=== PATIENT | female | born 1965 | race Caucasian/White ===

== ENCOUNTER 2020-05-22 08:19 | Outpatient (REF) | payer OTHER, SELFPAY ==
[2020-05-22 09:51] LABS: Eos%MD 1.4 %; Eosinophils Absolute Auto 0.1 X10*3/uL (0.0-0.4); WBCANC 4.4 X10*3/uL
[2020-05-22 09:56] LABS: Estimated Average Glucose 117 mg/dL; Hemoglobin A1c % 5.7 %
[2020-05-22 10:16] LABS: Cholesterol 250 mg/dL; Glucose Fasting 101 mg/dL (60-99); HDL Cholesterol 79 mg/dL; LDL Cholesterol Calculated 160 mg/dl; Triglycerides 57 mg/dL
[2020-05-24 18:27] LABS: Immunoglobulin E 1000 kU/L (<OR=114)
== END 2020-05-22 08:20 | disposition home or self-care (01) ==
LOC: HO.LAB 08:19
PROVIDERS: PCP Family Medicine; Visit Provider Family Medicine
DX: J45.909 Unspecified asthma, uncomplicated (principal); Z82.49 Family history of ischemic heart disease and other diseases of the circulatory system
CPT/HCPCS: 36415; 80061; 82785; 82947; 83036

== ENCOUNTER 2020-08-07 09:45 | Outpatient (REF) | payer OTHER, SELFPAY ==
--- NOTE | 2020-08-07 09:49 | MM_ITS ---
EXAMINATION: MM SCREENING DIGITAL BREAST TOMOSYNTHESIS, BILATERAL CLINICAL INFORMATION: Screening. Asymptomatic. The lifetime risk of breast cancer based on the Tyrer-Cuzick Model is 7%. COMPARISON: Mammography: 08/02/2019, 07/27/2018, 01/23/2015 TECHNIQUE: Digital breast tomosynthesis is performed in both the craniocaudal and mediolateral oblique views along with computer-aided detection (CAD). Synthesized 2D images are generated from the tomosynthesis. FINDINGS: The breasts are heterogeneously dense, which may obscure small masses (ACR BI-RADS breast composition Category c). Breast tissue composition borders on average fibroglandular. Parenchymal pattern is similar to prior exams and there is no interval mass or architectural abnormality or developing density. No abnormal calcifications. The axilla and skin contours are unremarkable. MM/MM tomosynthesis screening BI IMPRESSION: No significant changes from prior exam. ASSESSMENT: BI-RADS 1: Negative RECOMMENDATION: Routine annual mammography screening. This patient's information was entered into a reminder system with a target due date for their next mammogram.
== END 2020-08-07 09:46 | disposition home or self-care (01) ==
LOC: HO.MAMMO 09:45
PROVIDERS: PCP Family Medicine; Visit Provider Family Medicine
DX: Z12.31 Encounter for screening mammogram for malignant neoplasm of breast (principal)
CPT/HCPCS: 77063; 77067

== ENCOUNTER 2021-08-31 12:35 | Outpatient (REF) | payer OTHER, SELFPAY ==
[2021-08-31 14:07] LABS: MANUAL DIFF FLAG NO
[2021-08-31 14:12] LABS: Basophils Percent Auto 0.1 % (0-2); Eosinophils Absolute Auto 0.1 X10*3/uL (0.0-0.4); Eosinophils Percent Auto 1.2 % (0-4); Hematocrit 40.8 % (37.0-47.0); Hemoglobin 12.9 g/dl (12.0-16.0); Imm Gran Abs Auto 0.01 X10*3/uL (0.00-0.03); Imm Gran Pct Auto 0.1 % (0.0-0.4); Lymphocytes Absolute Auto 1.1 X10*3/uL (1.2-4.9); Lymphocytes Percent Auto 15.4 % (20-40); Mean Corpuscular HGB Conc 31.6 g/dl (31.0-35.0); Mean Corpuscular Hemoglobin 27.1 pg (27.0-33.0); Mean Corpuscular Volume 85.7 fL (80.0-98.0); Mean Platelet Volume 11.6 fL (9.4-12.3); Monocytes Absolute Auto 0.5 X10*3/uL (0.1-1.2); Monocytes Percent Auto 6.1 % (2-11); Neutrophils Absolute Auto 5.7 x10*3/uL (2.0-8.3); Neutrophils Percent Auto 77.1 % (45-73); Platelet Count 208 X10*3/uL (160-400); Red Blood Count 4.76 X10*6/uL (4.20-5.50); Red Cell Distribution Width 13.3 % (11.0-16.0); White Blood Count 7.4 X10*3/uL (4.8-10.8)
[2021-08-31 16:05] LABS: Blood Urea Nitrogen 12 mg/dL (9-16); C Reactive Protein 1.82 mg/dL (< or = 0.50); Estimated Glomerular Filt Rate > 60
== END 2021-08-31 12:36 | disposition home or self-care (01) ==
LOC: HO.10HDL 12:35
PROVIDERS: Visit Provider Family Medicine
DX: L03.90 Cellulitis, unspecified (principal); I10 Essential (primary) hypertension
CPT/HCPCS: 36415; 82565; 84520; 85025; 86140

== ENCOUNTER 2021-09-26 15:53 | Outpatient (REF) | payer OTHER, SELFPAY ==
--- NOTE | ~2021-09-26 | MM_ITS ---
EXAMINATION: MM SCREENING DIGITAL BREAST TOMOSYNTHESIS, BILATERAL CLINICAL INFORMATION: Screening. Asymptomatic. The lifetime risk of breast cancer based on the Tyrer-Cuzick Model is 6%. COMPARISON: Mammography: 08/07/2020, 08/02/2019, 07/27/2018 TECHNIQUE: Digital breast tomosynthesis is performed in both the craniocaudal and mediolateral oblique views along with computer-aided detection (CAD). Synthesized 2D images are generated from the tomosynthesis. FINDINGS: The breasts are heterogeneously dense, which may obscure small masses (ACR BI-RADS breast composition Category c). There are no significant masses, abnormal calcifications, or other abnormalities. Parenchymal pattern is similar to prior studies. There are no significant changes. MM/MM tomosynthesis screening BI IMPRESSION: No mammographic evidence of malignancy. ASSESSMENT: BI-RADS 1: Negative RECOMMENDATION: Routine annual mammography screening. This patient's information was entered into a reminder system with a target due date for their next mammogram.
== END 2021-09-26 15:54 | disposition home or self-care (01) ==
LOC: HO.MAMMO 15:53
PROVIDERS: PCP Family Medicine; Visit Provider Family Medicine
DX: Z12.31 Encounter for screening mammogram for malignant neoplasm of breast (principal)
CPT/HCPCS: 77063; 77067

== ENCOUNTER 2022-02-06 16:17 | Outpatient (REF) | payer OTHER, SELFPAY ==
[2022-02-06 18:26] LABS: Appearance Urine CLEAR; Color Urine YELLOW; Glucose Urine UA NEG (NEG); Leukocyte Esterase Urine NEG (NEG); Nitrite Urine NEG (NEG); PH 5.5 (5.0-8.0); UACC Culture Trigger NO; Urine Blood TRACE (NEG); Urine Ketones NEG (NEG); Urine Protein NEG (NEG-TRACE)
[2022-02-06 18:39] LABS: Bacteria Urine 1+ /LPF; Squamous Epithelial Cell Urine TRACE /LPF
== END 2022-02-06 16:18 | disposition home or self-care (01) ==
LOC: HO.LAB 16:17
PROVIDERS: PCP Family Medicine; Visit Provider Family Medicine
DX: R32 Unspecified urinary incontinence (principal)
CPT/HCPCS: 81001; 87086

== ENCOUNTER 2023-03-30 12:34 | Outpatient (REF) | payer OTHER, SELFPAY ==
--- NOTE | ~2023-03-30 | XR_ITS ---
EXAMINATION: XR FOOT, RIGHT XR FOOT, LEFT CLINICAL INFORMATION: Bilateral heel pain. COMPARISON: None available. TECHNIQUE: AP, lateral, and oblique views of each of the feet. FINDINGS: Right: Small Achilles calcaneal spur. Punctate calcification projecting over the Achilles tendon. The bones and soft tissues appear unremarkable. No fracture appreciated. Alignment is anatomic. Joint spaces appear maintained. Left: Small Achilles calcaneal spur. The bones and soft tissues appear unremarkable. No fracture appreciated. Alignment is anatomic. Joint spaces appear maintained. XR/XR foot LT min 3V IMPRESSION: Small bilateral Achilles calcaneal spurs. Punctate calcification projecting over the right Achilles tendon, raising the possibility of minimal calcific tendinitis.
--- NOTE | ~2023-03-30 | XR_ITS ---
EXAMINATION: XR FOOT, RIGHT XR FOOT, LEFT CLINICAL INFORMATION: Bilateral heel pain. COMPARISON: None available. TECHNIQUE: AP, lateral, and oblique views of each of the feet. FINDINGS: Right: Small Achilles calcaneal spur. Punctate calcification projecting over the Achilles tendon. The bones and soft tissues appear unremarkable. No fracture appreciated. Alignment is anatomic. Joint spaces appear maintained. Left: Small Achilles calcaneal spur. The bones and soft tissues appear unremarkable. No fracture appreciated. Alignment is anatomic. Joint spaces appear maintained. XR/XR foot RT min 3V IMPRESSION: Small bilateral Achilles calcaneal spurs. Punctate calcification projecting over the right Achilles tendon, raising the possibility of minimal calcific tendinitis.
== END 2023-03-30 12:35 | disposition home or self-care (01) ==
LOC: HO.XRAY 12:34
PROVIDERS: PCP Family Medicine; Visit Provider Family Medicine
DX: M79.671 Pain in right foot (principal); M79.672 Pain in left foot
CPT/HCPCS: 73630

== ENCOUNTER 2023-09-03 16:01 | Outpatient (REF) | payer OTHER, SELFPAY ==
--- NOTE | ~2023-09-03 | XR_ITS ---
EXAMINATION: XR KNEE, LEFT CLINICAL INFORMATION: Pain. COMPARISON: None available. TECHNIQUE: AP, lateral, tunnel, and sunrise views of the left knee. FINDINGS: No fracture or joint effusion. Alignment is anatomic. Joint spaces are maintained. No abnormal soft tissue calcification. XR/XR knee LT 4V IMPRESSION: Normal left knee.
== END 2023-09-03 16:02 | disposition home or self-care (01) ==
LOC: HO.XRAY 16:01
PROVIDERS: PCP Family Medicine; Visit Provider Family Medicine
DX: M25.562 Pain in left knee (principal)
CPT/HCPCS: 73564

== ENCOUNTER 2023-09-10 12:20 | Outpatient (AMB) | payer OTHER, SELFPAY ==
--- NOTE | 2023-09-10 12:23 | A.OFFVIS_ITS ---
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 She was referred by her pcp for concerned of pain and swelling with difficulty walking. Patient reports that she has had pain for about 2 weeks now, he pain started while at work. Her pain is aggravted with any and all acitivity. 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 She was referred here by her PCP to discuss possible knee aspiration. She reports ~2 weeks of left knee pain & swelling. She has pain with daily activity, which she says any motion increases, along with difficulty walking. [facility] Surgical History (Updated 09/10/23 @ 12:27 by Bernadette Cruz CMA) Hx of appendectomy Social History (Updated 09/10/23 @ 12:27 by Bernadette Cruz CMA) Current occupational status: employed Current occupation: [employer] Review of Systems Const All systems reviewed & are unremarkable except as noted in HPI and below Physical Exam Vital Signs: BMI result Body Mass Index 33.5 Const General: no acute distress, alert and awake Orientation/consciousness: patient oriented x3 HEENT Head: Yes normocephalic and Yes atraumatic Eyes EOM: EOMs intact bilaterally Resp Effort & Inspection: normal respiratory effort and able to speak in complete sentences Cardio Jugular venous distension: no JVD Skin General skin exam: turgor normal Rashes: no rashes Neuro General: patient oriented x3 Extrem Other: mild effusion no warmth or erythema ttp medial joint line + gait antalgia Psych Appearance: grossly normal Affect: normal affect Attitude: cooperative Office Procedures Joint Injection/Drain Joint Injection/Drain Details: Injected 1 mL of Decadron and 3 mL 1% lidocaine and 3 mL of 0.25% Marcaine. Site was prepped using aseptic technique. Patient tolerated the procedure well. Primary Site: left knee Approach Used: anterolateral Coding - Large joint Procedure code (CPT) selection complete Results Reviewed Results Reviewed: I personally reviewed relevant radiographs. nl knee radiographs Assessment & Plan Assessment & Plan (1) Osteoarthritis of left knee: Code(s): M17.12 - Unilateral primary osteoarthritis, left knee Plan: Spontaneous effusion left knee I injected her knee. PT and NSAIDs Plan Prepared for Fabio Gracia MD by Kalin Sood, electromedical equipment repairer, on 09/10/23 at 12:31 PM, EST. Orders: Orders PT Evaluation and Treatment 09/10/23 M17.12 - Unilateral primary osteoarthritis, left knee Medications: New naproxen (EC-Naprosyn) 500 mg PO BID 30 days PRN 60 tabs 1RF pain Coding Level of Care Code New Pt Level 3 (10756) Diagnoses Osteoarthritis of left knee M17.12 CPT Codes Coding - Large joint: 37715 - Large joint ([id number])
[2023-09-10 12:27] VITALS: BMI 33.5
== END 2023-09-10 13:37 | disposition home or self-care (01) ==
PROVIDERS: PCP Family Medicine; Visit Provider Orthopaedic Surgery
DX: M17.12 Unilateral primary osteoarthritis, left knee (principal)
CPT/HCPCS: 20610; 99203

== ENCOUNTER → 2023-09-10 12:20 | Outpatient (BNVA) | payer OTHER, SELFPAY | PROVIDERS: PCP Family Medicine; Visit Provider Orthopaedic Surgery | DX: M17.12 Unilateral primary osteoarthritis, left knee (principal) | CPT/HCPCS: 20610; J0665; J1100 ==

== ENCOUNTER 2023-10-01 14:30 | Outpatient (AMB) | payer OTHER, SELFPAY ==
--- NOTE | 2023-10-01 14:32 | MHC.OFFVIS ---
Intake Intake Visit Reasons: OV-Left knee pain/swelling follow up Intake Note: Gill is a 57 year old female who presents today for a follow up of her left knee. She was last seen on 09/10/23 where the knee was injected, Physical Therapy was ordered and Naproxen was prescribed. Patient reports that this injection was not very helpful, It allowed her to increase ROM but she is still having pain. She has started PT which went well. She stopped taking the Naproxen as it was causing GI upset Allergies banana [BANANA] Allergy (Unknown, Unverified 04/15/20 16:08) UNKNOWN pineapple [PINEAPPLE] Allergy (Unknown, Unverified 04/15/20 16:08) UNKNOWN shellfish derived [SHELLFISH DERIVED] Allergy (Unknown, Unverified 04/15/20 16:08) UNKNOWN morphine Allergy (Verified 09/10/23 12:26) Vomiting shrimp Allergy (Unknown, Uncoded 01/27/14 00:00) oral swlling HPI OV-Left knee pain/swelling follow up HPI Details Gill is a 57 year old woman who returns for a follow-up of her left knee OA & effusion. She was last seen, and injected, on 09/10/23, with mild relief. PT & NSAIDs were ordered as well. She says she is still having pain. She has started PT, which has helped improve her ROM, but has not helped her pain. She was experiencing GI upset with Naproxen so she stopped taking it. PFSH Surgical History (Updated 09/10/23 @ 12:27 by Bernadette Cruz CMA) Hx of appendectomy Social History (Updated 09/10/23 @ 12:27 by Bernadette Cruz CMA) Current occupational status: employed Current occupation: [employer] Review of Systems Const All systems reviewed & are unremarkable except as noted in HPI and below Physical Exam Const General: no acute distress, alert and awake Orientation/consciousness: patient oriented x3 HEENT Head: Yes normocephalic and Yes atraumatic Mouth: moist mucous membranes Eyes General: appearance normal, both eyes and all related structures EOM: EOMs intact bilaterally Chest Other: no audible wheezing. Resp Other: No audible wheezing Effort & Inspection: normal respiratory effort and able to speak in complete sentences Cardio Other: Radial pulse palpable with no rythmic abnormalities Jugular venous distension: no JVD Back/Spine/Pelvis Cervical Spine: normal cervical lordosis Skin General skin exam: turgor normal Rashes: no rashes Neuro General: patient oriented x3 Extrem Other: TTP pes anserine bursa Minimal ttp medal and lateral ocmaprtemnt of knee No effusion Psych Appearance: grossly normal Mental Status: mental status grossly normal Speech and movement: Normal speech and movement present Affect: normal affect Attitude: cooperative Assessment & Plan Assessment & Plan (1) Pes anserinus tendonitis: Code(s): M76.899 - Other specified enthesopathies of unspecified lower limb, excluding foot Plan: Pes anserine bursitis. Her pain is different than prior and I suspect the prior injection may actually have been helpful. I discussed options. At this time she will work of stretching and exercise and see me if she does not improve or gets worse. No other intervention at this time Plan Prepared for Fabio Gracia MD by Kalin Sood, medical superintendent, on 10/01/23 at 2:35 PM, EST. Coding Level of Care Code Est Pt Level 3 (81085) Diagnoses Pes anserinus tendonitis M76.899
== END 2023-10-01 15:01 | disposition home or self-care (01) ==
PROVIDERS: PCP Family Medicine; Visit Provider Orthopaedic Surgery
DX: M76.892 Other specified enthesopathies of left lower limb, excluding foot (principal)
CPT/HCPCS: 99213

== ENCOUNTER → 2023-10-01 14:30 | Outpatient (BNVA) | payer OTHER, SELFPAY | PROVIDERS: PCP Family Medicine; Visit Provider Orthopaedic Surgery ==

== ENCOUNTER 2023-10-11 16:00 | Outpatient (RCR) | payer OTHER, SELFPAY ==
--- NOTE | 2023-09-26 16:43 | MHC.PT.EP ---
[facility] [place] Office [place] Office [place] Office [address] [phone] F: [phone] F: [phone] F: [phone] F: [phone] Physical Therapy Plan of Care Date of Evaluation: 09/25/23 Date of Surgery: Diagnosis: LEFT knee OA Assessment: Patient is a pleasant 57 y.o. female who is referred to PT by Dr. Fabio Gracia MD, with Dx of LEFT knee osteoarthritis.Patient impairments include pain, limited ROM, weakness, antalgic gait. Patient current functional limitations are proloned sitting, standing, walking, bend/squat, lift/carry at work, stair use, getting in/out of car. Patient will benefit from skilled PT to address aforementioned impairments and functional limitations to meet established goals. Frequency and Duration: The patient will be seen 2x/week for 4 weeks Short Term Goals: 2 weeks Patient demonstrates consistency and independence with HEP to self manage symptoms. Patient presents with increased LEFT knee extension 0 degrees to normalize gait pattern. Skilled Nursing Goals: 4 weeks Patient presents with increased LEFT knee flexion 120 degrees to be able to perform squat to low surface. Patient presents with increased LEFT knee extension 5/5 to be able to ascend/descend stairs. Treatment Plan: Modalities to reduce pain, spasms and effusion. Manual therapy to restore motion and function. Therapeutic exercise to improve strength and flexibility. Neuromuscular re-education for posture and balance. Therapeutic activities to return to functional activities of daily living. Electronically signed by: Dann Tucker, PT, DPT Please sign and return to therapist. Thank you for your referral.
--- NOTE | 2023-12-26 09:20 | MHC.PT.DC ---
[facility] [place] Office [place] Office [place] Office [address] Poonam Finney [address] [phone] F: [phone] F: [phone] F: [phone] F: [phone] Physical Therapy Discharge Report Diagnosis: LEFT knee OA Date of Surgery: Date of Evaluation: 09/25/23 Date of Discharge: 12/26/23 Treatments to Date: 2 Cancellations to Date: 0 No Shows to Date: 0 Discharge Status: Independent with HEP Patient Elected to Stop Discharge Summary: Lucy was only seen for one FUP visit after evaluation and then ceased attending on her own accord. Her last PT assessment on 10/11/23 reads, Gill's AROM in her LEFT knee is significantly improved since initial visit, from 70 degrees of flexion to measuring 112 degrees today and extension to 0 degrees. She is still presenting with weakness in quads and glutes so I added exercises to focus on both this session with good tolerance and reports improvement in her symptoms end of session. Electronically signed by: Dann Tucker, PT, DPT Please sign and return to therapist. Thank you for your referral.
== END 2023-12-26 09:20 | disposition home or self-care (01) ==
LOC: HO.PT 16:00
PROVIDERS: PCP Family Medicine; Visit Provider Orthopaedic Surgery
DX: M17.12 Unilateral primary osteoarthritis, left knee (principal)
CPT/HCPCS: 97110; 97161

== ENCOUNTER 2024-01-05 08:22 | Outpatient (REF) | payer OTHER, SELFPAY ==
[2024-01-05 09:31] LABS: Anion Gap 14 (12-20); Blood Urea Nitrogen 12 mg/dL (9-16); Carbon Dioxide 25 mmol/L (22-29); Chloride 106 mmol/L (96-108); Cholesterol 279 mg/dL (<200); Estimated Glomerular Filt Rate > 60; Glucose Fasting 105 mg/dL (60-99); HDL Cholesterol 72 mg/dL (>40); LDL Cholesterol Calculated 195 mg/dL (<100); Potassium 4.3 mmol/L (3.3-5.1); Sodium 141 mmol/L (135-145); Triglycerides 64 mg/dL (<150)
== END 2024-01-05 08:23 | disposition home or self-care (01) ==
LOC: HO.XRAY 08:22
PROVIDERS: PCP Family Medicine; Visit Provider Family Medicine
DX: I10 Essential (primary) hypertension (principal); E78.00 Pure hypercholesterolemia, unspecified; R73.9 Hyperglycemia, unspecified; M79.605 Pain in left leg
CPT/HCPCS: 36415; 80051; 80061; 82565; 82947; 84520

== ENCOUNTER 2024-01-07 14:57 | Outpatient (REF) | payer OTHER, SELFPAY ==
--- NOTE | ~2024-01-07 | XR_ITS ---
EXAMINATION: XR TIBIA AND FIBULA, LEFT CLINICAL INFORMATION: Leg pain COMPARISON: None available. TECHNIQUE: AP and lateral views of the left tibia and fibula were obtained. FINDINGS: The bones and soft tissues are unremarkable. No fracture. No osseous lesions. XR/XR tibia fibula LT 2V IMPRESSION: Normal left tibia and fibula.
== END 2024-01-07 14:58 | disposition home or self-care (01) ==
LOC: HO.LAB 14:57
PROVIDERS: PCP Family Medicine; Visit Provider Family Medicine
DX: M79.605 Pain in left leg (principal)
CPT/HCPCS: 73590

== ENCOUNTER 2024-10-04 08:15 | Outpatient (REF) | payer OTHER, SELFPAY ==
[2024-10-04 10:21] LABS: Alanine Aminotransferase 25 U/L (0-31); Anion Gap 12 (12-20); Aspartate Amino Transferase 21 U/L (5-31); Blood Urea Nitrogen 16 mg/dL (9-16); Carbon Dioxide 24 mmol/L (22-29); Chloride 109 mmol/L (96-108); Estimated Glomerular Filt Rate > 60; Potassium 4.5 mmol/L (3.3-5.1); Sodium 140 mmol/L (135-145)
== END 2024-10-04 08:16 | disposition home or self-care (01) ==
LOC: HO.LAB 08:15
PROVIDERS: PCP Family Medicine; Visit Provider Family Medicine
DX: I10 Essential (primary) hypertension (principal); E11.9 Type 2 diabetes mellitus without complications
CPT/HCPCS: 36415; 80051; 82550; 82565; 84450; 84460; 84520

== ENCOUNTER 2024-10-21 09:52 | Outpatient (REF) | payer OTHER, SELFPAY ==
--- NOTE | 2024-10-21 09:55 | EMG_ITS ---
Bilateral tibial and peroneal motor studies were performed. Bilateral superficial peroneal and sural sensory studies were performed. Tibial H reflexes were obtained and needle examination was performed. IMPRESSION: 1. Bilateral superficial peroneal sensory neuropathy. Otherwise, there was no evidence of any the significant peripheral neuropathy. 2. Left tibial motor amplitudes were low that sometime can suggest radiculopathy, but there was no EMG evidence of acute radiculopathy at this time. MD KATELYNN Ruiz/MODL / [id number]
--- OUTSIDE RECORDS SUMMARY | 2024-10-21 11:21 | XMS_ITS | Patient Health Record ---
Author Organization [facility] Address [address] [place] [address] Care Team Providers Care Wallpaper Hanger Name Role Phone Rusty SHOOK, Ivan Primary Care Provider UnavailMarie Grande Unavailable [phone] Allergies Allergen (clinical drug ingredient) Drug/Non Drug Allergy documented on EMR Reaction Allergy Type Onset Date Status morphine Morphine Sulfate increased heart rate Drug Allergy Active Shrimp/Shell Fish hives Drug Allergy Active Reason For Referral No Information Medications Medication SIG (Take, Route, Frequency, Duration) Notes Start Date End Date Status dilTIAZem HCl ER Beads 120 MG 1 capsule Orally Once a day Not-Taking Nightsplint . . . AFO - L1930 for . Not-Taking Cephalexin Not-Takin g Polymyxin B-Trimethoprim Not-Taking Feldene 20 MG 1 capsule with food Orally Once a day for 30 day(s) 06/05/2023 Active Social History Tobacco Use: Social History Observation Description Date Details (start date - stop date) Never Smoker NA - NA Tobacco Use/Smoking Question Answer Notes Are you a: nonsmoker Additional Findings: Tobacco Non-User Current no n-smoker Alcohol Screen Question Answer Notes Did you have a drink containing alcohol in the p ast year? Yes Points 0 Interpretation Negative Tobacco use other than smoking: Question Answer Notes Are you an other tobacco user? No Encounters Encounter Location Date Provider Diagnosis [facility] [address] [place] [address] 05/14/2024 Marie Cheema Plan Of Treatment No Information Insurance Providers Payer Name Payer Address Payer Phone Subscriber Number Group Number Insured Name Patient Relationship to Insured Coverage Start Date Coverage End Date Cigna [address] Radha blake, [place] [phone] [id number] Gill Batres Self - patient is the insured Medical (General) History Medical History History ICD Code High blood pressure Chicken pox Surgical History Surgery Date(Month/Year) appendectomy 11/2014 cataract surgery breast surgery Hospitalization History Reason Date(Month/Year) childbirth
--- OUTSIDE RECORDS SUMMARY | 2024-10-21 11:21 | XMS_ITS ---
Author Organization [facility] Address [address] [place] [address] Care Team Providers Care Sales Enablement Specialist Name Role Phone Rusty SHOOK, Ivan Primary Care Provider UnavailMarie Grande [phone] Encounters Encounter Location Date Provider Diagnosis [facility] [address] [place] [address] 07/17/2023 Marie Cheema Plan Of Treatment No Information Progress Notes * Abhay GALLAGHERaDOB:1965 ( 58 yo F)Acc No.[id number]:07/17/2023 Progress Notes Patient:?Gill GALLAGHER Provider:?Marie Cheema DPM :1965???Age:57 Y???Sex:Female D ate:07/17/2023 Address:[address] [place], [place] [address] Pcp:Ivan Ojeda MD Subjective: * Chief Complaints: * ??? * Medical History:? Objective: * Vitals:? Assessment: Plan: * Treatment: * Images: * The named appointment provid er may or may not be the originator of this progress note, and it is not deemed complete until electronically signed by the appointment provider. Sign off status: Pending * Provider:?Marie Cheema DPM Date:? Generated for Guadalupei tenisha/Nirali/eTransmitting on:?10/21/2024 11:21 AM EDT
--- OUTSIDE RECORDS SUMMARY | 2024-10-21 11:21 | XMS_ITS ---
Author Organization [facility] Address [address] [place] [address] Care Team Providers Care Bag Bundler Name Role Phone Ivan Ojeda MD Primary Care Provider Unavailab Marie Arshad [phone] REASON FOR VISIT NS 05/14/24 Encounters Encounter Location Date Provider Diagnosis [facility] [address] [place] [address] 05/14/2024 Marie Cheema Plan Of Treatment No Information Progress Notes * Abhay GALLAGHERaDOB:1965 ( 58 yo F)Acc No.[id number]:05/14/2024 Patient:?Medardo Gill :1965???Age:58 Y???Sex:Female Address:[address] [place] [address], [address] * true * Date:? Generated for Printi ng/Faroyag/eTransmitting on:?10/21/2024 11:21 AM EDT
--- OUTSIDE RECORDS SUMMARY | 2024-10-21 11:21 | XMS_ITS ---
Author Organization [facility] Address [address] [place] [address] Care Team Providers Care Home Health Provider Name Role Phone Rusty SHOOK, Ivan Primary Care Provider UnavailMarie Grande Unavailable [phone] Medications Medication SIG (Take, Route, Frequency, Duration) Notes Start Date End Date Status dilTIAZem HCl ER Beads 120 MG 1 capsule Orally Once a day Not-Taking Nightsplint . . . AFO - L1930 for . Not-Taking Cephalexin Not-Takin g Polymyxin B-Trimethoprim Not-Taking Feldene 20 MG 1 capsule with food Orally Once a day for 30 day(s) 06/05/2023 Active Encounters Encounter Location Date Provider Diagnosis [facility] [address] [place] [address] 05/14/2024 Marie Cheema Plan Of Treatment No Information Progress Notes * Abhay GALLAGHERaDOB:1965 ( 58 yo F)Acc No.[id number]:05/14/2024 Progress Note Patient:?Day GALLAGHERyda Provider:?Marie Cheema DPM :1965???Age:58 Y???Sex:Female D ate:05/14/2024 Address:[address] [place] [phone] Pcp:Ivan Ojeda MD Subjective: * Chief Complaints: * ??? * Medical History:? * Medications:?Taking Feldene 20 MG Capsule 1 capsule with food Orally Once a day , Not-Taking/PRN dilTIAZem HCl ER Beads 120 MG Capsule Extended Release 24 Hour 1 capsule Orally Once a day , Not-Taking/PRN Nightsplint . . . . AFO - L1930 , Not-Taking/PRN Cephalexin , Not-Taking/PRN Polymyxin B-Trimethoprim Objective: * Vitals:? Assessment: Plan: * Treatment: * Images: * The named appointment provid er may or may not be the originator of this progress note, and it is not deemed complete until electronically signed by the appointment provider. Sign off status: Pending * Provider:?Marie Cheema DPM Date:? Generated for Wicho steven/Nirali/Rosario on:?10/21/2024 11:21 AM EDT
== END 2024-10-21 09:53 | disposition home or self-care (01) ==
LOC: HO.NEURO 09:52
PROVIDERS: PCP Family Medicine; Visit Provider Family Medicine
DX: M79.661 Pain in right lower leg (principal); M79.662 Pain in left lower leg
CPT/HCPCS: 95886; 95911

== ENCOUNTER 2025-04-24 15:04 | Outpatient (AMB) | payer OTHER, SELFPAY ==
--- OUTSIDE RECORDS SUMMARY | 2024-05-14 11:00 | XMS_ITS ---
Author Organization [facility] Address [address] [place] [address] Care Team Providers Care Income Tax Adjuster Name Role Phone Rusty SHOOK, Ivan Primary Care Provider Unavailab Marie Arshad Unavailable [phone] Medications Medication SIG (Take, Route, Frequency, Duration) Notes Start Date End Date Status dilTIAZem HCl ER Beads 120 MG 1 capsule Orally Once a day Not-Taking Nightsplint . . . AFO - L1930; Duration: . Not-Taking Cephalexin Not-Takin g Polymyxin B-Trimethoprim Not-Taking Feldene 20 MG 1 capsule with food Orally Once a day; Duration: 30 day(s) 06/05/2023 Active Encounters Encounter Location Date Provider Diagnosis [address] [address] 05/14/2024 Marie Cheema Plan Of Treatment No Information Progress Notes * Abhay GALLAGHERaDOB:1965 ( 59 yo F)Acc No.[id number]:05/14/2024 Progress Note Patient: Abhay LESLIEa Provider: Ana Cheema DPM :1965 A ge:58 Y S ex:Female Date:05/14/2024 Address:[address] [place] [id number] Pcp:Ivan Ojeda MD Subjective: * Chief Complaints: * * Medical History: * Medications: T aking Feldene 20 MG Capsule 1 capsule with food Orally Once a day , Not- Taking/PRN dilTIAZem HCl ER Beads 120 MG Capsule Extended Release 24 Hour 1 capsule Orally Once a day , Not-Taking/PRN Nightsplint . . . . AFO - L1930 , Not-Taking/PRN Cephalexin , Not-Taking/PRN Polymyxin B-Trimethoprim Objective: * Vitals: Assessment: Plan: * Treatment: * Images: * The named appointment provid er may or may not be the originator of this progress note, and it is not deemed complete until electronically signed by the appointment provider. Sign off status: Pending * Provider: Ana Cheema DPM Date: 1 Generated for Wicho steven/Nirali/Rosario on: 0 04/24/2025 03:42 PM EDT
--- NOTE | 2025-04-24 15:06 | MHC.PC.OV ---
Vital Signs 04/24/25 15:08 Height 5 ft 3 in Weight 89.811 kg BMI 35.1 BP 130/80 Blood Pressure Location Lt brachial Position Sitting Pulse 71 Pulse Source Pulse Oximeter Temp 97 F Temp Source Temporal Artery Scan Pulse Oximetry (%) 96 Oxygen Delivery Method Room Air Intake Visit Reasons: 4 month follow up-laura pt Database Analyst Required: No Accompanied by: Self / Same As Patient Allergies banana (BANANA) Allergy (Unknown, Verified 04/24/25 15:06) UNKNOWN pineapple (PINEAPPLE) Allergy (Unknown, Verified 04/24/25 15:06) UNKNOWN shellfish derived (SHELLFISH DERIVED) Allergy (Unknown, Verified 04/24/25 15:06) UNKNOWN morphine Allergy (Verified 04/24/25 15:06) Vomiting shrimp Allergy (Unknown, Uncoded 01/27/14 00:00) oral swlling Medication List - Last Reconciled 04/24/25 by JOSE Fox hydroxyzine pamoate 25 mg PO DAILY PRN Tobacco use date assessed: 04/24/25 Dental Screening Dental Screen Date: 04/24/25 Did you have a dental visit in the last 12 months?: Yes Did you have a dental problem in the last 6 months where you did not have access to dental care?: No HPI HPI Comments History of Present Illness Details 59-year-old female with history of vertigo, varicose veins, GERD, hyperlipidemia presenting to the office today for management of chronic conditions and to establish care. She is a former patient of Dr. Ojeda, last seen 3 months ago. Varicose veins-s/p endovascular ablation at [facility] vascular surgery. Reports the pain during the procedure was unbearable and she continues experiencing pain and swelling in the bilateral lower legs most prominent in the popliteal fossa. She was trying to wear compression stockings but despite getting measured, these were too tight and were causing too much compression resulting in her feeling very dizzy. She does work a job with prolonged standing. Headache/intermittent vertigo- hydroxyzine prn GERD- eating 10 minutes has to have a bowel movement. occ foods epigastric pain acidic foods bananas HDL- Last LDL 197. Previously on statin but got myalgias and depression (?) Obesity- BMI 35.1. Tries to follow a healthy diet but does acknowledge she is not always following a healthy weight. Weight fluctuations. She does exercise on a regular basis with biking, stairs Concerns: Nail dystrophy Health maintenance: Last mammogram 08/2021, ordered Last colonoscopy 07/2015, 10 year follow-up advised. Dr. Beckham ROS: See HPI EXAM: Constitutional - Awake and Alert, No apparent distress Eyes - PERRL Cardiovascular - S1S2, RRR, No edema Respiratory - Normal lung expansion, Normal respiratory effort, No respiratory distress, CTA bilaterally Extremities - no calf tenderness bilaterally, no swelling Skin - Warm/Dry . Dystrophic nail 3rd left finger Neurological - Alert & oriented x3 Psychological - Appropriate affect [facility] Medical History (Updated 04/24/25 @ 15:58 by JOSE Fox) GERD (gastroesophageal reflux disease) HLD (hyperlipidemia) Varicose veins of bilateral lower extremities with pain Surgical History Hx of appendectomy Family History (Updated 04/24/25 @ 15:13 by Re Daugherty MA) Mother No problems noted. Father No problems noted. Social History Housing: House Patient Tobacco Use Status: Never used Tobacco e-Cigarette/Vaping Use: Never Used service: No Current occupational status: employed Current occupation: [employer] Cognitive needs: No Hearing needs: No Vision needs: Yes (rx glasses) Questionnaire PHQ-9 Over the last 2 weeks, how often have you been bothered by any of the following problems? 1. Little interest or pleasure in doing things: not at all 2. Feeling down, depressed, or hopeless: not at all 3. Trouble falling or staying asleep, or sleeping too much: not at all 4. Feeling tired or having little energy: not at all 5. Poor appetite or overeating: not at all 6. Feeling bad about yourself - or that you are a failure or have let yourself or your family down: not at all 7. Trouble concentrating on things, such as reading the newspaper or watching television: not at all 8. Moving or speaking so slowly that other people could have noticed. Or the opposite - being so fidgety or restless that you have been moving around a lot more than usual: not at all 9. Thoughts that you would be better off or of hurting yourself in some way: not at all Total score: 0 Source: Developed by Drs. Teodoro Jerez, Ishaan Brandon and colleagues, with an educational parker from [employer]. Thrive Questionnaire Date Thrive assessed: 04/24/25 I am a: Patient Within the past 12 months, did the food you bought not last and you didn't have the money to get more?: Never true Within the past 12 months, did you worry whether your food would run out before you got money to buy more?: Never true Do you have trouble paying for medicines?: No Do you have trouble getting transportation to medical appointments?: No Do you have trouble paying your heating and electricity bill?: No Do you have trouble taking care of your child, family member or friend?: No Do you have trouble with day-to-day activities such as bathing, preparing meals, shopping, managing finances, etc.?: No Are you currently unemployed and looking for a job?: No Are you interested in more education?: No THRIVE Score: 0 AUDIT C Alcohol Use Questionnaire (AUDIT-C) 1. How often do you have a drink containing alcohol?: Never 3. How often do you have six or more drinks on one occasion?: Never Total Score: 0 ALEXIA-7 AMB Questionnaire ALEXIA-7 Date ALEXIA - 7 assessed: 04/24/25 Feeling nervous, anxious, or on edge: 0 = Not at all Not being able to stop or control worryin = Not at all Worrying too much about different things: 0 = Not at all Trouble relaxin = Not at all Being so restless that it is hard to sit still: 0 = Not at all Becoming easily annoyed or irritable: 0 = Not at all Feeling afraid as if something awful might happen: 0 = Not at all Total ALEXIA-7 score (0-4 normal; 5-9 mild; 10-14 moderate; 15-21 severe): 0 Source: Developed by Drs. Teodoro Jerez, Ishaan Brandon and colleagues, with an educational parker from [employer]. Physical exam (Primary Care) Vital Signs: Last Vital Signs Temp 97 F 04/24/25 15:08 Pulse 71 04/24/25 15:08 BP 130/80 04/24/25 15:08 Pulse Ox 96 04/24/25 15:08 Oxygen Delivery Method Room Air 04/24/25 15:08 BMI result Body Mass Index 35.1 Tobacco/Smoking Status: Tobacco use Status Tobacco use date assessed 04/24/25 04/24/25 15:07 Patient Tobacco Use Status Never used Tobacco 04/24/25 15:07 e-Cigarette/Vaping Use Never Used 04/24/25 15:07 PHQ-9: PHQ-9 Score PHQ-9: Total score 0 04/24/25 15:39 Thrive Assessment: Date of Thrive Assessment Date Thrive assessed 04/24/25 04/24/25 15:07 Coding Level of Care Code New Pt Level 4 (57406) Complex EM visit Add On G2211 Diagnoses Varicose veins of bilateral lower extremities with pain I83.813 HLD (hyperlipidemia) E78.5 GERD (gastroesophageal reflux disease) K21.9 Assessment & Plan Assessment & Plan (1) Varicose veins of bilateral lower extremities with pain: Code(s): I83.813 - Varicose veins of bilateral lower extremities with pain Category: Medical Plan: Referred back to [facility] vascular surgery. Recommend elevating legs, trialing larger sized compression stockings (2) HLD (hyperlipidemia): Code(s): E78.5 - Hyperlipidemia, unspecified Category: Medical Plan: Previously uncontrolled with LDL 197. Lipid profile ordered. Discussed that if her cholesterol remains significantly elevated statin will be recommended. Follow diet lower in saturated fats and highly processed foods. Written information provided (3) GERD (gastroesophageal reflux disease): Code(s): K21.9 - Gastro-esophageal reflux disease without esophagitis Category: Medical Plan: Tums as needed Plan Follow-up in the office in 6 months with labs completed following visit today Referred for screening colonoscopy in 07/2025 Referred to dermatology for further evaluation of dystrophic nails Orders: Orders Basic Metabolic Panel Today E78.5 - Hyperlipidemia, unspecified, I83.813 - Varicose veins of bilateral lower extremities with pain, K21.9 - Gastro-esophageal reflux disease without esophagitis Lipid Panel Today E78.5 - Hyperlipidemia, unspecified, I83.813 - Varicose veins of bilateral lower extremities with pain, K21.9 - Gastro-esophageal reflux disease without esophagitis Hemoglobin A1c Today E78.5 - Hyperlipidemia, unspecified, I83.813 - Varicose veins of bilateral lower extremities with pain, K21.9 - Gastro-esophageal reflux disease without esophagitis Referrals Gastroenterology Referral E78.5 - Hyperlipidemia, unspecified, I83.813 - Varicose veins of bilateral lower extremities with pain, K21.9 - Gastro-esophageal reflux disease without esophagitis, L60.3 - Nail dystrophy, Z12.11 - Encounter for screening for malignant neoplasm of colon Dermatology Referral L60.3 - Nail dystrophy Vascular Surgery Referral I83.813 - Varicose veins of bilateral lower extremities with pain
[2025-04-24 15:08] VITALS: BP 130/80; PULSE 71; TEMP 36.1; O2SAT 96; BMI 35.1
--- OUTSIDE RECORDS SUMMARY | 2025-04-24 15:42 | XMS_ITS | Patient Health Record ---
Author Organization [facility] Address [address] [place] [address] Care Team Providers Care Home Health Care Provider Name Role Phone Ivan Ojeda MD Primary Care Provider UnavailMarie Grande Unavailable [phone] Allergies Allergen (clinical drug ingredient) Drug/Non Drug [...] a day; Duration: 30 day(s) 06/05/2023 Active Social History Tobacco [...] No Encounters Encounter Location Date Provider Diagnosis [facility] [address] [place] [address] 05/14/2024 Marie Cheema Plan Of Treatment No Information Insurance Providers Payer Name Payer Address Payer Phone Subscriber Number Group Number Insured Name Patient Relationship to Insured Coverage Start Date Coverage End Date [employer] [address] [place], [place] [phone] [id number] Gill Batres Self - patient is the insured Medical (General) History Medical History History ICD Code High blood pressure Chicken pox Surgical History Surgery Date(Month/Year) appendectomy 11/2014 cataract surgery breast surgery Hospitalization History Reason Date(Month/Year) childbirth
--- OUTSIDE RECORDS SUMMARY | 2025-04-24 15:42 | XMS_ITS | Patient Health Record ---
Author Organization [facility] Address [address] [place] [address] Care Team Providers Care Sonar Watchstander Name Role Phone Rusty (RETIRED) Ivan SHOOK Primary Care Provider Unavailable Teodoro Mckeon Unavailable [phone] Allergies Allergen (clinical drug ingredient) Drug/Non Drug Allergy documented on EMR Reaction Allergy Type Onset Date Status Shellfish (FN) shell fish,shrimp (uncoded) Unknown Allergy Active Reason For Referral No Information Medications Medication SIG (Take, Route, Frequency, Duration) Notes Start Date End Date Status Colyte w Flavor Packs 240 GM as directed Orally as directed for 1 day(s) 06/02/2015 Active Problems Problem Type SNOMED Code ICD Code Onset Dates Problem Status W/U Status Risk Notes Problem [id number] Encounter for screening for malignant neoplasm of colon (Z12.11) Active confirmed Problem Screening for malignant neoplasm of rectum (837518531) Encounter for screening for malignant neoplasm of rectum (Z12.12) Active confirmed Problem [id number] Preprocedural examination (Z01.818) Active confirmed Plan Of Treatment Future Test Test Name Order Date COLONOSCOPY 06/02/2015 Insurance Providers Payer Name Payer Address Payer Phone Subscriber Number Group Number Insured Name Patient Relationship to Insured Coverage Start Date Coverage End Date [facility] [place] [address] [place] [phone] [id number] JOSELINE GALLAGHER Self - patient is the insured Medical (General) History Medical History History ICD Code Denies NC,DM,CVA,Lung disease,renal dise ase Elevated cholesterol C. diff 11/2013 Surgical History Surgery Date(Month/Year) appendectomy-Dr. Nunez--- had C.diff d uring that hospitalization 11/2013 cataract removal-right cyst removal in breast-benign
== END 2025-04-24 16:02 | disposition home or self-care (01) ==
LOC: HO.HMCHD 15:04
PROVIDERS: PCP Family Medicine; Visit Provider Physician Assistant
DX: I83.813 Varicose veins of bilateral lower extremities with pain (principal); E78.5 Hyperlipidemia, unspecified; K21.9 Gastro-esophageal reflux disease without esophagitis